=== PATIENT | female | born 1935 | race Caucasian/White ===

== ENCOUNTER 2017-10-28 14:07 | Emergency (ER) | payer MEDICARE, OTHER ==
[~2017-10-28] VITALS: Ht 167.6 cm; Wt 78.0 kg
[~2017-10-28 14:07] MED LIST: ACTO35TA PO; ALPR.25 PO; GLUC10TA3 PO; HYDR-3533 PO; LISI-360 PO; ZOCO80TA PO
[2017-10-28 14:46] VITALS: BP 159/74; PULSE 75; RESP 16; TEMP 98; O2SAT 95
[2017-10-28] MEDS ORDERED: PRAV40TA2 PO (15:21)
[2017-10-28] MEDS ORDERED: LISI10TA3 PO (15:21)
[2017-10-28] MEDS ORDERED: ALEN1TAB48 PO (15:21)
[2017-10-28] MEDS ORDERED: METF500T PO (15:21)
[2017-10-28] MEDS ORDERED: SODIUM CHLORID 0.9% 500 ML INJ 500 ML IV ONE ×2 (16:00→16:30)
[2017-10-28 16:05] VITALS: BP 151/68; PULSE 71; RESP 20; O2SAT 100
[2017-10-28 16:15] LABS: AUTOMATED NEUTROPHIL # 9.4 TH/MM3 (1.8-7.7); BASOPHIL # 0.1 TH/MM3 (0-0.2); BASOPHIL % 0.5 % (0.0-2.0); EOSINOPHIL # 0.1 TH/MM3 (0-0.4); EOSINOPHIL % 1.2 % (0.0-4.0); HEMATOCRIT 35.7 % (35.0-46.0); HEMOGLOBIN 12.1 GM/DL (11.6-15.3); LYMPH % 11.8 % (9.0-44.0); LYMPHOCYTE # 1.4 TH/MM3 (1.0-4.8); MEAN CORPUSCULAR HEMOGLOBIN 29.1 PG (27.0-34.0); MEAN CORPUSCULAR HGB CONC 33.8 % (32.0-36.0); MEAN PLATELET VOLUME 8.4 FL (7.0-11.0); MONO % 7.7 % (0.0-8.0); MONOCYTE # 0.9 TH/MM3 (0-0.9); NEUT % 78.8 % (16.0-70.0); PLATELET COUNT 188 TH/MM3 (150-450); RED BLOOD COUNT 4.14 MIL/MM3 (4.00-5.30); RED CELL DISTRIBUTION WIDTH 12.1 % (11.6-17.2); WHITE BLOOD COUNT 11.9 TH/MM3 (4.0-11.0)
[2017-10-28 16:19] LABS: BICARBONATE 24.5 MEQ/L (21.0-32.0); CALCIUM 8.8 MG/DL (8.5-10.1)
[2017-10-28 16:22] LABS: CREATININE 1.3 MG/DL (0.50-1.00)
[2017-10-28] MEDS ORDERED: SODIUM POLYSTYRENE SULFONATE SUSP 15 GM/60 ML CUP PO ONE (16:30)
--- NOTE | 2017-10-28 16:42 | PD ---
HPI Chief Complaint: Diabetic Time Seen by Provider: 15:18 Travel History International Travel<30 days: No Contact w/Intl Traveler<30days: No Traveled to known affect area: No History of Present Illness HPI 82-year-old female came to the emergency room since her blood sugar has been reading high for past 2 days. Says that they have been more than 500. Patient has history of diabetes and takes metformin. She says she's been taking the medication like she supposed to. This afternoon minute read high again she decided to come to the emergency room. However her blood sugar in ER checked by the nurse was 204. And does not have any history of vomiting or diarrhea. No history of fever or chills. She otherwise does not feel any different than her usual. [facility] Past Medical History Narrative Medical List of her past medical, surgical, social and family history is reviewed from the nursing note. Cancer: No Cardiovascular Problems: No High Cholesterol: Yes Diabetes: Yes Patient Takes Glucophage: Yes Diminished Hearing: No Endocrine: Yes Gastrointestinal Disorders: No Genitourinary: Yes (URINARY INCONTINENCE AT TIMES) Hepatitis: No Hiatal Hernia: No Hypertension: Yes Immune Disorder: No Medical other: Yes (HYPERCHOLESTEROLEMIA) Musculoskeletal: Yes (OSTEOPOROSIS, DJD,ARTHRITIS R HIP,& BACK) Neurologic: Yes Psychiatric: No Reproductive: Yes (OVARY REMOVED @ AGE 14) Respiratory: No Immunizations Current: Yes Thyroid Disease: No Past Surgical History Abdominal Surgery: Yes (APPENDECTOMY) AICD: No Cardiac Surgery: No Ear Surgery: No Endocrine Surgery: No Eye Surgery: No Genitourinary Surgery: No Gynecologic Surgery: Yes (OOPHORECTOMY (UNSURE WHICH OVARY)) Joint Replacement: No Neurologic Surgery: No Oral Surgery: Yes (T&A A CHILD) Pacemaker: No Thoracic Surgery: No Other Surgery: Yes Social History Alcohol Use: No Tobacco Use: Yes Substance Use: No Allergies-Medications (Allergen,Severity, Reaction): Coded Allergies: No Known Allergies (Verified Adverse Reaction, Unknown, 10/28/17) Comments No known drug allergies. Reported Meds & Prescriptions Reported Meds & Active Scripts Active Reported Metformin (Metformin HCl) 500 Mg Tab 500 Mg PO BIDPC Alendronate (Alendronate Sodium) 70 Mg Tab 70 Mg PO Q7D Lisinopril 10 Mg Tab 10 Mg PO DAILY Pravastatin 40 Mg Tab 40 Mg PO DAILY Narrative Medication List of her home medications reviewed from the nursing note. Review of Systems Except as stated in HPI: all other systems reviewed are Neg Physical Exam Narrative GENERAL: Awake, alert, elderly, no obvious distress SKIN: Focused skin assessment warm/dry. HEAD: Atraumatic. Normocephalic. EYES: Pupils equal and round. No scleral icterus. No injection or drainage. ENT: No nasal bleeding or discharge. Mucous membranes pink and moist. NECK: Trachea midline. No JVD. CARDIOVASCULAR: Regular rate and rhythm. No murmur appreciated. RESPIRATORY: No accessory muscle use. Clear to auscultation. Breath sounds equal bilaterally. GASTROINTESTINAL: Abdomen soft, non-tender, nondistended. Hepatic and splenic margins not palpable. MUSCULOSKELETAL: No obvious deformities. No clubbing. No cyanosis. No edema. NEUROLOGICAL: Awake and alert. No obvious cranial nerve deficits. Motor grossly within normal limits. Normal speech. PSYCHIATRIC: Appropriate mood and affect; insight and judgment normal. Data Data Last Documented VS Vital Signs Date Time Temp Pulse Resp B/P (MAP) Pulse Ox O2 Delivery O2 Flow Rate FiO2 10/28/17 17:18 76 20 148/75 (99) 96 10/28/17 14:46 98.0 Orders Orders Complete Blood Count With Diff (10/28/17 15:56) Basic Metabolic Panel (Bmp) (10/28/17 15:56) Sodium Chlorid 0.9% 500 Ml Inj (Ns 500 M (10/28/17 16:00) Sodium Chlorid 0.9% 500 Ml Inj (Ns 500 M (10/28/17 16:30) Sodium Polysty Sulfate Liq (Kayexalate L (10/28/17 16:30) Ed Discharge Order (10/28/17 16:42) Labs Laboratory Tests Test 10/28/17 16:05 White Blood Count 11.9 TH/MM3 Red Blood Count 4.14 MIL/MM3 Hemoglobin 12.1 GM/DL Hematocrit 35.7 % Mean Corpuscular Volume 86.0 FL Mean Corpuscular Hemoglobin 29.1 PG Mean Corpuscular Hemoglobin Concent 33.8 % Red Cell Distribution Width 12.1 % Platelet Count 188 TH/MM3 Mean Platelet Volume 8.4 FL Neutrophils (%) (Auto) 78.8 % Lymphocytes (%) (Auto) 11.8 % Monocytes (%) (Auto) 7.7 % Eosinophils (%) (Auto) 1.2 % Basophils (%) (Auto) 0.5 % Neutrophils # (Auto) 9.4 TH/MM3 Lymphocytes # (Auto) 1.4 TH/MM3 Monocytes # (Auto) 0.9 TH/MM3 Eosinophils # (Auto) 0.1 TH/MM3 Basophils # (Auto) 0.1 TH/MM3 CBC Comment DIFF FINAL Differential Comment Blood Urea Nitrogen 51 MG/DL Creatinine 1.30 MG/DL Random Glucose 180 MG/DL Calcium Level 8.8 MG/DL Sodium Level 133 MEQ/L Potassium Level 5.2 MEQ/L Chloride Level 101 MEQ/L Carbon Dioxide Level 24.5 MEQ/L Anion Gap 8 MEQ/L Estimat Glomerular Filtration Rate 39 ML/MIN MDM Medical Decision Making Medical Screen Exam Complete: Yes Emergency Medical Condition: Yes Medical Record Reviewed: Yes Differential Diagnosis Hyperglycemia, dehydration Narrative Course 4:40 PM blood sugar results of back. Patient's BUN/creatinine are elevated. This is not much different from her baseline. She will be given IV fluid bolus. It was also noticed that her potassium was slightly elevated. With that elevated BUN and creatinine of decided to give her by mouth Kayexalate. She will be discharged home. Procedures EKG Prior to Arrival: No Diagnosis Primary Impression: Dehydration Additional Impressions: Renal insufficiency Hyperkalemia Referrals: Primary Care Physician 2 days Additional Instructions: Please follow-up with your primary care in a day or 2 to get her blood test rechecked. Her potassium was slightly high in your kidney function were not the best. Please get them repeated. Return to the ER if condition worsens or any other new concerns. Med/Other Pt SpecificInfo: No Change to Meds Disposition: 01 DISCHARGE HOME Condition: Stable Reina Waite MD Oct 28, 2017 16:42
[2017-10-28 17:18] VITALS: BP 148/75
== END 2017-10-28 17:25 | disposition home or self-care (01) ==
LOC: PHED 14:07
DX: E86.0 Dehydration (principal); N28.9 Disorder of kidney and ureter, unspecified; E87.5 Hyperkalemia; E11.9 Type 2 diabetes mellitus without complications; E78.00 Pure hypercholesterolemia, unspecified; I10 Essential (primary) hypertension; M81.0 Age-related osteoporosis without current pathological fracture; Z79.899 Other long term (current) drug therapy; Z72.0 Tobacco use
CPT/HCPCS: 80048; 85025; 96360; 99283; J7040